=== PATIENT | male | born 1945 | race Two or more races ===

== ENCOUNTER 2020-10-21 09:48 | Day surgery (SDC) | payer MEDICARE ==
[~2020-10-21] VITALS: Ht 182.9 cm; Wt 96.2 kg
[~2020-10-21 09:48] MED LIST: AMLO10 PO; ASPI81CH PO; CLON.2 PO; GLIP10 PO; INSULANPEN SQ
[2020-10-21] MEDS ORDERED: Methazolamide25 MG PO (10:33)
[2020-10-21] MEDS ORDERED: PIOG15 PO (10:33)
--- NOTE | 2020-10-21 10:44 | NUR ---
10/21/20 1044 Angela Schwartz CALL LIGHT WITHIN REACH. PT SPEAKS [facility]IMMAL[facility], HOWEVER PT'S FAMILY MEMBER IN ROOM TO HELP TRANSLATE TO [place]. DR. MILLER AWARE OF PT'S HIGH BP. NO FURTHER ORDERS GIVEN, WILL PROCEED WITH PROCEDURE.
== END 2020-10-21 12:22 | disposition home or self-care (01) ==
LOC: ORSCSDS 09:48
PROVIDERS: Ophthalmology
PROC: 08RK3JZ Replacement of Left Lens with Synthetic Substitute, Percutaneous Approach (ICD-10-PCS; principal; 2020-10-21 11:00)
DX: H25.12 Age-related nuclear cataract, left eye (principal); I10 Essential (primary) hypertension; E11.9 Type 2 diabetes mellitus without complications; N18.4 Chronic kidney disease, stage 4 (severe); Z79.4 Long term (current) use of insulin; Z79.899 Other long term (current) drug therapy
CPT/HCPCS: 82947; J2001; J2250; J3010; J7040; V2632

== ENCOUNTER 2020-11-11 09:58 | Day surgery (SDC) | payer MEDICARE ==
[~2020-11-11] VITALS: Ht 182.9 cm; Wt 95.2 kg
[~2020-11-11 09:58] MED LIST changes: +Methazolamide25 MG PO; +PIOG15 PO
--- NOTE | 2020-11-11 10:27 | NUR ---
11/11/20 1027 APURVA PEACOCK TETRACAINE GTT ADMINISTERED AT 1025
== END 2020-11-11 12:06 | disposition home or self-care (01) ==
LOC: ORSCSDS 09:58
PROVIDERS: Ophthalmology
PROC: 08RJ3JZ Replacement of Right Lens with Synthetic Substitute, Percutaneous Approach (ICD-10-PCS; principal; 2020-11-11 11:15)
DX: H25.11 Age-related nuclear cataract, right eye (principal); I10 Essential (primary) hypertension; N18.4 Chronic kidney disease, stage 4 (severe); E11.9 Type 2 diabetes mellitus without complications; Z79.84 Long term (current) use of oral hypoglycemic drugs; Z79.899 Other long term (current) drug therapy
CPT/HCPCS: 82947; A9270; J2001; J2250; J3010; J7040; V2632

== ENCOUNTER → 2021-05-30 | Outpatient (CLI) | payer MEDICARE ==
[2021-05-30 16:31] LABS: Creatinine Urine 56.9 mg/dL (27.00-270.00); Protein, Urine Quantitative 49.5 mg/dL (0.0-11.9)
== END | disposition home or self-care (01) ==
LOC: LAB SHORT 13:11 → LAB 13:11
PROVIDERS: Internal Medicine Nephrology
DX: N18.4 Chronic kidney disease, stage 4 (severe) (principal); D63.1 Anemia in chronic kidney disease; N25.81 Secondary hyperparathyroidism of renal origin; E55.9 Vitamin D deficiency, unspecified; E29.1 Testicular hypofunction; R76.9 Abnormal immunological finding in serum, unspecified; R94.5 Abnormal results of liver function studies; R94.6 Abnormal results of thyroid function studies; G60.9 Hereditary and idiopathic neuropathy, unspecified; D51.8 Other vitamin B12 deficiency anemias; D52.8 Other folate deficiency anemias; D50.9 Iron deficiency anemia, unspecified
CPT/HCPCS: 81050; 82043; 82570; 84156

== ENCOUNTER → 2022-03-31 | Outpatient (CLI) | payer MEDICARE ==
[2022-03-31 12:17] LABS: Albumin, Blood 3.8 g/dL (3.4-5.0); Bilirubin, Total 0.4 mg/dL (0.1-1.0); Bun/Creatinine Ratio 13.3 (12.0-20.0); Calcium, Blood 8.7 mg/dL (8.5-10.1); Creatinine, Blood 3.75 mg/dL (0.60-1.20); Globulin, Blood 3.7 g/dL (2.2-4.0); Potassium, Blood 4.4 mmol/L (3.5-5.5); Total Protein, Blood 7.5 g/dL (6.4-8.2)
== END | disposition home or self-care (01) ==
LOC: LAB 09:42 → LAB SHORT 09:42
PROVIDERS: Internal Medicine Endocrinology, Diabetes & Metabolism
DX: E11.65 Type 2 diabetes mellitus with hyperglycemia (principal)
CPT/HCPCS: 36415; 80053; 83036

== ENCOUNTER → 2024-12-06 | Outpatient (CLI) | payer MEDICARE ==
[2024-12-06 16:48] LABS: Appearance, Urine Clear (Clear); Bilirubin, Urine Neg (Neg); Blood, Urine 2+ (Neg); Glucose Qualitative, Urine 2+ (Neg); Ketones, Urine Neg (Neg); Leukocyte Esterase, Urine 1+ (Neg); Nitrite, Urine Neg (Neg); Protein, Urine 3+ (Neg); Urobilinogen, Urine NORM (Normal); pH, Urine 6.5 (5.0-8.0)
[2024-12-06 16:53] LABS: Color, Urine Pale Yellow (P-Yellow)
[2024-12-06 16:54] LABS: Bacteria Few /hpf; Squamous Epithelial Cells Rare /hpf (Few)
== END ==
LOC: LAB 16:42 → LAB SHORT 16:42
PROVIDERS: Radiology Radiation Oncology
DX: C61 Malignant neoplasm of prostate (principal); Z51.0 Encounter for antineoplastic radiation therapy
CPT/HCPCS: 81001; 87077; 87086

== ENCOUNTER 2025-08-12 09:17 | Day surgery (SDC) | payer MEDICARE ==
[~2025-08-12] VITALS: Ht 180.3 cm; Wt 92.1 kg
[2025-08-12] VITALS (7 sets, daily range): BP systolic 112–170; BP diastolic 66–86
[~2025-08-12 09:17] MED LIST changes: +Alphagan P5 ML LEFTEYE; +METF500C PO; +Prinivil10 MG PO; +SODBIC650 PO; +TIMDOROPSO LEFTEYE
[2025-08-12] MEDS ORDERED: CeFAZolin Sodium 1000 mg Vial ONE (10:29)
[2025-08-12] MEDS ORDERED: NS 0 ML IV ONE (10:29)
[2025-08-12] MEDS ORDERED: NS 1,000 ML IV ONE ×2 (10:29→10:42)
[2025-08-12] MEDS ORDERED: Heparin Sodium 1000 Units/ML 10ML MDV ONE (10:29)
[2025-08-12] MEDS ORDERED: NS 500 ML IV ONE (10:34)
[2025-08-12] MEDS ORDERED: Midazolam HCl 1MG / ML 2ML Vial ONE (10:41)
[2025-08-12] MEDS ORDERED: CeFAZolin Sodium 2,000 MG VIAL ONE (10:42)
[2025-08-12] MEDS ORDERED: NS 100 ML IV ONE (10:42)
[2025-08-12] MEDS ORDERED: FentaNYL Citrate 50 MCG/ML 2 ML Injection ONE (10:42)
--- NOTE | 2025-08-12 12:45 | NUR ---
PATIENT ARRIVED BACK TO RECOVERY ROOM SITTING UPRIGHT IN RECLINER. SPOUSE PRESENT AT [facility]. R CHEST DRESSING C/D/I. ICE PACK IN PLACE. LEFT IJ SITE C/D/I. VSS ON RA. PATIENT DENYING ANY PAIN. PATIENT CONVERSING APPROPRIATELY. PATIENT TOLERATING PO INTAKE WELL. WILL CONTINUE TO MONITOR.
--- NOTE | 2025-08-12 13:20 | NUR ---
DISCHARGE INSTRUCTIONS REVIEWED WITH SPOUSE, ALL QUESTIONS WERE ANSWERED. NO CHANGES TO MEDICATIONS. CHEST X RAY PERFORMED. VSS ON RA.
--- NOTE | 2025-08-12 13:57 | NUR ---
PATIENT AMBULATING AND VOIDING TO RESTROOM WITHOUT DIFFICULTY. RIGHT CHEST DRESSING C/D/I. LEFT IJ DRESSING C/D/I. VSS ON RA.
--- NOTE | 2025-08-12 14:06 | NUR ---
PATIENT DISCHARGED HOME AT THIS TIME. ALL PATIENT BELONGINGS LEFT WITH PATIENT AND SPOUSE. PIV REMOVED WITHOUT DIFFICULTY, CAHTETER INTACT. RIGHT CHEST DRESSING C/D/I, NO EVIDENCE OF BLEEDING. LEFT IJ SITE C/D/I. PATIENT WHEELED TO HOSPITAL ENTRANCE AND SPOUSE ABLE TO PROVIDE TRANSPORTATION HOME.
== END 2025-08-12 14:09 | disposition home or self-care (01) ==
LOC: MHTC 09:17
DX: Z45.010 Encounter for checking and testing of cardiac pacemaker pulse generator [battery] (principal); E11.9 Type 2 diabetes mellitus without complications; I10 Essential (primary) hypertension; Z79.84 Long term (current) use of oral hypoglycemic drugs; Z79.899 Other long term (current) drug therapy
CPT/HCPCS: 33210; 33227; 71046; 76937; 82947; 99152; 99153; C1786; C1894; J0690; J1644; J2250; J3010; J7030; J7040; J7050